=== PATIENT | female | born 1990 | race Caucasian/White ===

== ENCOUNTER 2016-12-19 18:33 | Inpatient (IN) | payer OTHER ==
[~2016-12-19] VITALS: Ht 162.6 cm; Wt 107.0 kg
[~2016-12-19 18:33] MED LIST: PREN1TAB49
[2016-12-19 19:47] VITALS: BP 115/58; PULSE 75; RESP 18
[2016-12-19 20:08] LABS: ADD UMIC YES; UR ASCORBIC ACID NEGATIVE (NEGATIVE); UR BACTERIA FEW /HPF (NONE SEEN); UR BILIRUBIN (Dip) NEGATIVE (NEGATIVE); UR BLOOD (Dip) NEGATIVE (NEGATIVE); UR CLARITY SLIGHTLY CLOUDY (CLEAR); UR COLOR YELLOW (YELLOW); UR GLUCOSE (Dip) NEGATIVE (NEGATIVE); UR KETONES (Dip) NEGATIVE (NEGATIVE); UR LEUKOCYTE ESTERASE (Dip) 3+ Leu/ul (NEGATIVE); UR MUCUS FEW /HPF (NONE SEEN); UR NITRITE (Dip) NEGATIVE (NEGATIVE); UR RBC 1 /HPF (0-5); UR SPECIFIC GRAVITY (Dip) 1.008 (1.003-1.030); UR SQUAMOUS EPITHELIAL CELL FEW /HPF (FEW); UR TOTAL PROTEIN (Dip) NEGATIVE (NEGATIVE); UR UROBILINOGEN (Dip) NEGATIVE (NEGATIVE)
[2016-12-19] MEDS ORDERED: LACTATED RINGER'S 1,000 ML IV ONE (20:30)
[2016-12-19] MEDS ORDERED: LACTATED RINGER'S 1,000 ML IV SCH ×2 (20:30→21:59)
[2016-12-19] MEDS ORDERED: OXYTOCIN 30 UNITS/LR 500 ML IV SCH (22:00)
[2016-12-19] MEDS ORDERED: CEFAZOLIN 2 GM/50 ML (PMX) 50 ML IV SCH (22:00)
[2016-12-19] MEDS ORDERED: CARBOPROST 250 MCG INJ IM PRN (22:00)
[2016-12-19] MEDS ORDERED: METHYLERGONOVINE 0.2 MG INJ IM PRN (22:00)
[2016-12-19] MEDS ORDERED: OXYTOCIN 30 UNITS/LR 500 ML IV PRN (22:00)
[2016-12-19] MEDS ORDERED: MISOPROSTOL 200 MCG TAB PR PRN (22:00)
[2016-12-19 22:17] LABS: ADD SCAN DIFF NO
[2016-12-19 22:22] LABS: BASOPHILS % 0.1 % (0.0-2.0); EOSINOPHILS # 0.1 10^3/ul (0.0-0.5); EOSINOPHILS % 1.9 % (0.0-7.0); HEMATOCRIT 27.4 % (37.0-47.0); HEMOGLOBIN 8.7 g/dl (12.0-16.0); LYMPHOCYTES # 1.3 10^3/ul (0.8-2.9); LYMPHOCYTES % 17.6 % (15.0-51.0); MEAN CORPUSCULAR HEMOGLOBIN 26.4 pg (29.0-33.0); MEAN CORPUSCULAR HGB CONC 31.8 g/dl (32.0-37.0); MEAN CORPUSCULAR VOLUME 83.3 fl (82.0-101.0); MEAN PLATELET VOLUME 12.6 fl (7.4-10.4); MONOCYTE # 0.5 10^3/ul (0.3-0.9); MONOCYTES % 6.1 % (0.0-11.0); NEUTROPHIL # 5.6 10^3/ul (1.6-7.5); NEUTROPHILS % 73.9 % (39.0-77.0); PLATELET COUNT 227 10^3/UL (140-415); RED BLOOD COUNT 3.29 10^6/ul (4.20-5.40); RED CELL DISTRIBUTION WIDTH 13.6 % (11.5-14.5); WHITE BLOOD COUNT 7.5 10^3/ul (4.8-10.8)
[2016-12-19 22:35] LABS: INR 0.91; PROTIME 12.2 Sec (12.2-14.2)
[2016-12-19 22:36] LABS: PARTIAL THROMBOPLASTIN TIME 25.8 Sec (25.0-35.0)
[2016-12-19] MEDS ORDERED: ONDANSETRON 4 MG INJ IV ONE (22:55)
[2016-12-19] MEDS ORDERED: PHENYLephrine (100 MCG/ML) 5ML SYG ONE (22:58)
[2016-12-19] MEDS ORDERED: FENTAnyl 50 MCG/ML VIAL ONE (22:58)
[2016-12-19] MEDS ORDERED: morphine SULFATE/PF (10 MG/10 ML) INJ ONE (22:59)
[2016-12-19] MEDS ORDERED: OXYTOCIN 10 UNIT INJ ONE (22:59)
[2016-12-19] MEDS ORDERED: METOCLOPRAMIDE 10 MG INJ ONE (22:59)
[2016-12-19] MEDS ORDERED: CITRIC ACID/NA CITRATE 30 ML CUP PO ONE (23:00)
--- NOTE | 2016-12-19 23:24 | HP ---
Date/Time of Note Date/Time of Note DATE: 12/19/16 TIME: 23:21 OB - History Hx of Present Chief Complaint: contractions Estimated Due Date: Jan 05, 2017 : 3 Para: 2 Spontaneous : 0 Therapeutic : 0 Care: Good Care Ultrasounds: Normal mid trimester US Obstetrical Complications: None Medical Complications: None Past Family/Social History * Past Medical, Surgical, Family and Obstetric Histories reviewed from chart. OB Admission Exam Vital Signs Vital Signs Vital Signs Date Time Temp Pulse Resp B/P Pulse Ox O2 Delivery O2 Flow Rate FiO2 12/19/16 19:47 97.8 75 18 115/58 Room Air Physical Exam HEENT: WNL Heart: Rhythm Normal Lungs: Clear, Equal Abdomen: WNL Extremities: Normal Reflexes: Normal Cervical Dilatation: None Effacement: 75% Membranes: Intact Amniotic Fluid: Clear Heart Rate: 120's Accelerations: Accelerations Present Decelerations: No Decelerations Varibility: Moderate Last 72 hours Lab Results CBC & BMP 12/19/16 20:30 OB Assessment/Plan Reason for admission: other ( 37+ weeks, previous x2, painful contractions) Plan: Section JOSE RAUL CANO MD Dec 19, 2016 23:24
[2016-12-20] VITALS (12 sets, daily range): BP systolic 101–140; BP diastolic 56–71; PULSE 63–89; RESP 18–20
[2016-12-20] MEDS ORDERED: morphine 2 MG INJ IV PRN ×2
[2016-12-20] MEDS ORDERED: NALOXONE (0.4 MG/ML) INJ IV PRN
[2016-12-20] MEDS ORDERED: OXYCODONE/ACETAMINOPHEN (5/325) TAB PO PRN ×2
[2016-12-20] MEDS ORDERED: MIDAZOLAM 1 MG/ML 2 ML INJ IV PRN
[2016-12-20] MEDS ORDERED: hydrALAzine 20 MG INJ IV PRN
[2016-12-20] MEDS ORDERED: LABETALOL HCL 20MG INJ IV PRN
[2016-12-20] MEDS ORDERED: ONDANSETRON 4 MG INJ IV PRN ×2
[2016-12-20] MEDS ORDERED: HYDROmorphONE (0.2 MG/ML) 10ML SYG IV PRN ×3
[2016-12-20] MEDS ORDERED: MEPERIDINE 25 MG INJ IV PRN
[2016-12-20] MEDS ORDERED: FENTAnyl 50 MCG/ML VIAL IV PRN ×3
[2016-12-20] MEDS ORDERED: TRIMETHOBENZAMIDE 100 MG/ML VIAL IM PRN
[2016-12-20] MEDS ORDERED: EPHEDrine SULFATE 50 MG/5 ML SYG IV PRN
[2016-12-20] MEDS ORDERED: DIPHENHYDRAMINE 50 MG INJ IV PRN ×2
[2016-12-20] MEDS ORDERED: DIPHENHYDRAMINE 50 MG INJ ONE (00:22)
[2016-12-20] MEDS ORDERED: MIDAZOLAM 1 MG/ML 2 ML INJ ONE (00:22)
--- NOTE | 2016-12-20 01:26 | DELSUM ---
Delivery Summary A-C Datetime Report Generated by CPN: 12/20/2016 01:25 DELIVERY PERSONNEL Washing Machine Installer: Mckinnon, Freda MATERNAL INFORMATION Delivery Anesthesia: Spinal Medications in Delivery: SEE ANESTHESIA RECORDS Estimated Blood Loss (ml): 400 Placenta Cultured: No Maternal Complications: None LABOR SUMMARY EDC: 01/05/2017 00:00 No. Babies in Womb: 1 Attempted: No Labor Anesthesia: Intrathecal LABOR INFORMATION Reason for Induction: Not Applicable Onset of Labor: 12/18/2016 23:00 Oxytocin: N/A Group B Beta Strep: Done, Result Unknown Antibiotics # of Doses: 1 Antibiotics Time of Last Dose: 12/19/2016 23:27 Steroids Given: None Reason Steroids Not Administered: Not Applicable MEMBRANES Membranes Rupture Method: Artificial Rupture of Membranes: 12/20/2016 00:03 Length of Rupture (hr): 0.02 Amniotic Fluid Color: Clear Amniotic Fluid Amount: Scant STAGES OF LABOR Stage 3 hr: 0 Stage 3 min: 1 Total Time in Labor hr: 25 Total Time in Labor min: 5 CSECTION DELIVERY Primary Indication: Repeat Elective CSection Urgency: Elective CSection Incidence: Repeat Labor: Labor Elective: Nonelective CSection Incision: Lower Uterine Transverse BABY A INFORMATION Delivery Date/Time: 12/20/2016 00:04 Method of Delivery: Born in Route : No : N/A Forceps: N/A Vacuum Extraction: N/A Shoulder Dystocia : N/A SHOULDER DYSTOCIA BABY A Infant Delivery Date/Time: 12/20/2016 00:04 PRESENTATION/POSITION BABY A Presentation: Cephalic Cephalic Presentation: Vertex Breech Presentation: N/A PLACENTA INFORMATION BABY A Placenta Delivery Time : 12/20/2016 00:05 Placenta Method of Delivery: Manual Removal Placenta Status: Delivered SCORES BABY A Heart Rate 1 min: >100 bpm Resp Effort 1 min: Slow, Irregular Reflex Irritability 1 min: Cough/Sneeze/Pulls Away Muscle Tone 1 min: Active Motion Color 1 min: Body Hazel, Extremit Blue Resuscitation Effort 1 min: Tactile Stimulation; Oxygen SCORE 1 MIN: 8 Heart Rate 5 min: >100 bpm Resp Effort 5 min: Good Cry Reflex Irritability 5 min: Cough/Sneeze/Pulls Away Muscle Tone 5 min: Active Motion Color 5 min: Body Hazel, Extremit Blue Resuscitation Effort 5 min: Tactile Stimulation SCORE 5 MIN: 9 INFORMATION BABY A Gestational Age at Delivery: 37.5 Gestational Status: Early Term- 37- 38.6 Weeks Infant Outcome : Liveborn Condition : Stable Sex: Female IDENTIFICATION/MEDS BABY A ID Band Number: [id number] ID Band Location: Right Leg; Left Arm Sensor Applied: Yes Sensor Number: [id number] Sensor Location : Cord Clamp Vitamin K Given : Not Given Erythromycin Given: Not Given WEIGHT/LENGTH BABY A Infant Birthweight (gm): 3115 Weight (lb): 6 Weight (oz): 14 Length (in): 20.00 Infant Length (cm): 50.80 CORD INFORMATION BABY A No. Cord Vessels: 3 Nuchal Cord : Around Neck x1, Loose Cord Blood Taken: Yes Infant Suction: Mouth; Nose ASSESSMENT BABY A Infant Complications: None Physical Findings at Delivery: Within Normal Limits Respirations: Appears Normal Store Team Leader/ALS Called : No Infant Care By: Bambi WATTS Transferred To: Remains with Mother
[2016-12-20] MEDS: KETOROLAC 30 MG INJ IV PRN ×3 (02:46→21:12)
[2016-12-20] MEDS ORDERED: LANOLIN 7 GM TUBE TOP PRN (04:00)
[2016-12-20] MEDS ORDERED: METHYLERGONOVINE 0.2 MG INJ IM PRN (04:00)
[2016-12-20] MEDS ORDERED: OXYTOCIN 30 UNITS/LR 500 ML IV PRN (04:00)
[2016-12-20] MEDS ORDERED: CARBOPROST 250 MCG INJ IM PRN (04:00)
[2016-12-20] MEDS ORDERED: MISOPROSTOL 200 MCG TAB PR PRN (04:00)
--- NOTE | 2016-12-20 04:20 | TRIAGE ---
OB Triage Datetime Report Generated by CPN: 12/20/2016 04:18 Datetime: 12/20/2016 01:28 Stage of : Recovery Datetime: 12/20/2016 01:15 Stage of : Recovery Pain Assessment Pain Scale: 0 Pain Presence: None/Denies Pain Type: N/A Datetime: 12/20/2016 01:00 Stage of : Recovery Temperature Route: Oral Pain Assessment Pain Scale: 0 Pain Presence: None/Denies Pain Type: N/A Datetime: 12/19/2016 23:00 Stage of : Labor Labor Evaluation Frequency: 5-7 Monitor Mode: External Duration (sec)2399: 60-100 Quality: Moderate Pattern: Normal: <= 5 Contractions in 10 Minutes Resting Tone [place]: Relaxed Heart Rate FHR Baseline Rate: 145 Monitor Mode: External US Variability: Moderate 6-25 bpm Accelerations: 15X15 Decelerations: None Datetime: 12/19/2016 22:38 Assessment Type: Admission Assessment Vaginal Bleeding: None Maternal Assessment Level of Consciousness: Fully Conscious DTR's/Clonus: DTRs 2+; No Clonus Headache: Denies Blurred Vision: No Respiratory Effort: Unlabored; Regular Rhythm; Equal Expansion Breath Sounds, Left: Clear and Equal Breath Sounds, Right: Clear and Equal Nausea/Vomiting: Denies RUQ Epigastric Pain: Denies Lower Extremities Edema: None Degree: None Upper Extremities Edema: None Degree: None Facial Edema: None Fall Risk Assessment History of Falling: (0) No Secondary Diagnosis: (0) No Ambulatory Aid: (0) Bedrest/Nurse Assist IV Therapy: (20) Yes Gait: (0) Normal/Bedrest/Immobile Mental Status: (0) Oriented to Own Ability Fall Score: 20 Fall Risk Score Definition: No Risk: No action required Pain Assessment Pain Scale: 8 Pain Presence: Intermittent Pain Type: Contraction Pain Location: Abdomen Pain Goal: 3 Vaginal Exam Membrane Status: Intact Datetime: 12/19/2016 22:35 Membranes Ruptured Date/Time: 12/20/2016 00:03 Membranes Rupture Method: Artificial Amniotic Fluid Color: Clear Amniotic Fluid Amount: Scant Presentation 'A': Cephalic Datetime: 12/19/2016 19:43 Time of Arrival: 12/19/2016 18:29 EGA: 37.4 Arrived By: Wheelchair Arrived From: Home Chief Complaint: hx c/s x2 c/o ucs Movement: Present Contractions: Irregular Time Contractions Began: 12/18/2016 23:00 Contractions: q5-10 Rupture of Membranes: Denies Vaginal Bleeding: None Vaginal Discharge: Denies Recent Sexual Intercouse: Denies Abdominal Trauma: Not Applicable Patient Complaints: Contractions Time Provider Notified: 12/19/2016 20:04 Provider Notified: Dr Yost Initial Plan: EFM, SVE Datetime: 12/19/2016 19:33 Stage of : OB Triage Maternal Assessment Level of Consciousness: Fully Conscious Headache: Denies Blurred Vision: No Respiratory Effort: Unlabored Nausea/Vomiting: Denies RUQ Epigastric Pain: Denies Facial Edema: None Labor Evaluation Frequency: placed Monitor Mode: External Resting Tone [place]: Relaxed Monitor Mode: External US Comments: FHT 150 Pain Assessment Pain Scale: 8 Pain Presence: Intermittent Pain Type: Cramping Pain Location: Abdomen
[2016-12-20] MEDS: OXYTOCIN 30 UNITS/LR 500 ML IV SCH ×2 (05:29→08:56)
[2016-12-20] MEDS: SENNA/DOCUSATE NA (8.6MG/50MG) TAB PO SCH ×2 (08:53→21:13)
[2016-12-20] MEDS: LACTATED RINGER'S 1,000 ML IV SCH ×3 (11:42→21:59)
[2016-12-21] MEDS: LACTATED RINGER'S 1,000 ML IV SCH ×3 (03:42→19:42)
[2016-12-21] MEDS: OXYCODONE/ACETAMINOPHEN (5/325) TAB PO PRN ×2 (03:57→16:13)
[2016-12-21 04:00] VITALS: BP 117/69; PULSE 74; RESP 20
[2016-12-21] MEDS: IBUPROFEN 800 MG TAB PO SCH ×3 (06:54→21:57)
[2016-12-21 07:35] VITALS: BP 119/60; PULSE 63; RESP 19
[2016-12-21 08:29] LABS: ADD SCAN DIFF NO
[2016-12-21 08:38] LABS: BASOPHILS % 0.3 % (0.0-2.0); EOSINOPHILS # 0.1 10^3/ul (0.0-0.5); EOSINOPHILS % 0.9 % (0.0-7.0); HEMATOCRIT 26.1 % (37.0-47.0); HEMOGLOBIN 7.9 g/dl (12.0-16.0); LYMPHOCYTES # 1.2 10^3/ul (0.8-2.9); LYMPHOCYTES % 13.1 % (15.0-51.0); MEAN CORPUSCULAR HEMOGLOBIN 25.3 pg (29.0-33.0); MEAN CORPUSCULAR HGB CONC 30.3 g/dl (32.0-37.0); MEAN CORPUSCULAR VOLUME 83.7 fl (82.0-101.0); MEAN PLATELET VOLUME 11.9 fl (7.4-10.4); MONOCYTE # 0.5 10^3/ul (0.3-0.9); MONOCYTES % 4.8 % (0.0-11.0); NEUTROPHIL # 7.5 10^3/ul (1.6-7.5); NEUTROPHILS % 80.6 % (39.0-77.0); PLATELET COUNT 235 10^3/UL (140-415); RED BLOOD COUNT 3.12 10^6/ul (4.20-5.40); RED CELL DISTRIBUTION WIDTH 14.2 % (11.5-14.5); WHITE BLOOD COUNT 9.3 10^3/ul (4.8-10.8)
[2016-12-21] MEDS: SENNA/DOCUSATE NA (8.6MG/50MG) TAB PO SCH ×2 (09:45→13:30)
[2016-12-21 12:00] VITALS: BP 116/62; PULSE 65; RESP 19
[2016-12-21 16:13] VITALS: BP 110/64; PULSE 77; RESP 19
[2016-12-21 20:00] VITALS: BP 108/67; PULSE 76; RESP 20
--- NOTE | 2016-12-21 21:00 | QN ---
Documentation Comment No complaint Afebrile VSS Abdomen soft ND POD #1 stable Ambulate Advance diet Fe supplement. JOSE RAUL CANO MD Dec 21, 2016 21:00
[2016-12-21] MEDS: FERROUS GLUCONATE (EC) 325 MG TAB PO SCH (21:56)
[2016-12-21] MEDS: FOLIC ACID 1 MG TAB PO SCH (21:56)
[2016-12-22] MEDS: LACTATED RINGER'S 1,000 ML IV SCH ×2 (03:01→11:42)
[2016-12-22] MEDS: OXYCODONE/ACETAMINOPHEN (5/325) TAB PO PRN ×2 (03:03→19:53)
[2016-12-22 04:00] VITALS: BP 115/58; PULSE 69; RESP 18
[2016-12-22] MEDS: IBUPROFEN 800 MG TAB PO SCH ×3 (06:24→21:38)
[2016-12-22 07:25] VITALS: BP 106/53; PULSE 63; RESP 19
[2016-12-22] MEDS: SENNA/DOCUSATE NA (8.6MG/50MG) TAB PO SCH ×2 (11:17→21:38)
[2016-12-22] MEDS: FOLIC ACID 1 MG TAB PO SCH (11:17)
[2016-12-22] MEDS: FERROUS GLUCONATE (EC) 325 MG TAB PO SCH ×3 (11:17→23:36)
[2016-12-22 16:00] VITALS: BP 123/63; PULSE 69; RESP 19
[2016-12-22 19:53] VITALS: BP 121/67; PULSE 76; RESP 18
--- NOTE | 2016-12-22 20:26 | QN ---
Documentation Comment No complaint Afebrile VSS Abdomen soft Stable Continue present care. JOSE RAUL CANO MD Dec 22, 2016 20:26
[2016-12-23 04:15] VITALS: BP_SYST 112; BP_SYST 97; BP_DIAS 54; BP_DIAS 64; PULSE 53; PULSE 60; RESP 19
[2016-12-23] MEDS: IBUPROFEN 800 MG TAB PO SCH ×2 (05:40→13:46)
[2016-12-23 08:24] VITALS: BP 116/71; PULSE 65; RESP 18
[2016-12-23] MEDS: OXYCODONE/ACETAMINOPHEN (5/325) TAB PO PRN (08:24)
[2016-12-23] MEDS: SENNA/DOCUSATE NA (8.6MG/50MG) TAB PO SCH (08:30)
[2016-12-23] MEDS: FOLIC ACID 1 MG TAB PO SCH (08:30)
[2016-12-23] MEDS: FERROUS GLUCONATE (EC) 325 MG TAB PO SCH ×2 (08:30→13:46)
[2016-12-23] MEDS ORDERED: DIPHTH/TET/ACEL PERTUSS (ADULT) 0.5 ML VIAL IM* ONE (09:00)
--- NOTE | 2016-12-23 15:23 | OPR ---
DATE OF OPERATION: 12/20/2016 SURGEON: Maynor Yost MD. STORAGE CONSULTANT: India Castillo MD. ANESTHESIOLOGIST: Stone Pittman MD. PREOPERATIVE DIAGNOSIS: at 37+ weeks with previous C- section x2 and labor contractions. POSTOPERATIVE DIAGNOSES: 1. at 37+ weeks with previous x2 and labor contractions. 2. Omental adhesions. OPERATION PERFORMED: 1. Repeat low transverse section. 2. Lysis of adhesions. ANESTHESIA: Spinal. OPERATIVE PROCEDURE: The patient was taken to the operating room, placed on the operating table. After successful spinal anesthesia was given the patient was placed in supine position. The area was prepared and draped in the usual sterile fashion. Spinal anesthesia was assessed and was satisfactory. Using a scalpel, a Pfannenstiel incision was made about 2 fingerbreadth's above the symphysis pubis. The incision was carried through the, the fascia was incised and extended bilaterally with De Leon scissors. Two Gentry's were used to separate the fascia from the muscle. The muscle was dissected in the midline down to the peritoneum, the peritoneum was entered with 2 Kellys and sagittal scissors. Upon entering the peritoneal cavity, there was omental adhesions involving the anterior aspect of the uterus. The omental adhesions were clamped, incised and ligated with #1 chromic suture. Using a scalpel, a small transverse incision was made in the lower segment of the uterus. Upon entering the uterine cavity, Bandage scissors were inserted to extend the incision bilaterally. Carefully the baby was delivered from cephalic presentation. After suctioned clear of amniotic fluid. The baby was handed off to the team in attendance. 's were 8 and 9. The placenta was delivered without difficulty. The uterus was closed with #1 Monocryl continuous lock. After assuring hemostasis, both ovaries and tubes were examined and looked normal. The peritoneal cavity was irrigated with warm saline. The peritoneum was closed #2-0 Vicryl continuous. The fascia was closed with #1 Vicryl continuous in 2 segments. Subcutaneous tissue was reapproximated with #2-0 plain, and the skin was closed mariya. Estimated blood loss 600 mL. Complications none. All counts were correct. Dictated By: Maynor Yost MD /noel/jaspreet /Document#: [id number] MTDD
[2016-12-23 15:30] VITALS: BP 124/75; PULSE 67; RESP 18
[2016-12-23] MEDS ORDERED: IBUP800T25 PO (15:57)
--- NOTE | 2016-12-23 15:59 | DS ---
Date/Time of Note Date/Time of Note DATE: 12/23/16 TIME: 15:58 Obstetrical Discharge Record Final Diagnosis Final Diagnosis: Term delivered Section Section: Repeat Condition on Discharge Physical Assessment Voiding: Yes Bowel Movement: Yes Breast: Soft, non-tender Fundus: Firm Calf Tenderness: No Patient Condition: Stable JOSE RAUL CANO MD Dec 23, 2016 15:58
== END 2016-12-23 18:37 | disposition home or self-care (01) | DRG 766 ==
LOC: OBT 18:33 → L-D 18:35 → OBT 22:08 → L-D 23:30 → PP1 12-20 03:28
PROVIDERS: ADMIT Obstetrics & Gynecology; ATTEND Obstetrics & Gynecology
PROC: 10D00Z1 Extraction of Products of Conception, Low, Open Approach (ICD-10-PCS; principal; 2016-12-19)
DX: O34.211 Maternal care for low transverse scar from previous cesarean delivery (principal); K66.0 Peritoneal adhesions (postprocedural) (postinfection); O99.62 Diseases of the digestive system complicating childbirth; Z3A.37 37 weeks gestation of pregnancy; Z37.0 Single live birth
CPT/HCPCS: 36415; 81001; 85025; 85610; 85730; 86592; 86850; 86900; 86901; 87340; 90715; 94760; 96360; 96361; 99464; G0463; J0690; J1200; J1885; J2250; J2274; J2370; J2405; J2590; J2765; J3010; J7120